=== PATIENT | female | born 1945 | race Caucasian/White ===

== ENCOUNTER → 2016-07-08 | Outpatient (CLI) | payer MEDICARE, BC ==
[~2016-07-08] MED LIST: ALEN70TA30 PO; ASPI325T32 PO; ATOR10TA65 PO; CALC500O PO; CYAN100018 PO; DULO30CA47 PO; LEVO100T87 PO; LISI-313 PO; OXYC-481 PO; POTA99TA14 PO; VITA1TAB47 PO
--- NOTE | 2016-07-09 08:49 | RADRPT ---
PROCEDURE: XR left knee. CLINICAL INDICATION: Knee pain. TECHNIQUE: Three views are available for review. COMPARISON: No comparison available FINDINGS: There is a total knee replacement. There is no evidence of loosening of the prosthesis. The osseous structures are normal in mineralization, architecture and alignment No acute fracture or dislocation is seen.No osseous lesions are identified. The soft tissues are unremarkable . there is a small field prapatellar joint effusion. IMPRESSION: Unremarkable total knee replacement. Small suprapatellar joint effusion RPTAT: [facility] .Benny Irwin MD, MD Date Time Electronically viewed and signed by .Benny Irwin MD, MD on 07/09/2016 08:48 .B/
== END | disposition home or self-care (01) ==
LOC: HKI 11:04
PROVIDERS: ATTEND Orthopaedic Surgery
DX: R20.0 Anesthesia of skin (principal); Z96.652 Presence of left artificial knee joint
CPT/HCPCS: 73562; G0463

== ENCOUNTER → 2017-01-06 | Outpatient (CLI) | payer MEDICARE, BC ==
--- NOTE | 2017-01-07 10:03 | RADRPT ---
PROCEDURE: LEFT KNEE X-RAY CLINICAL INDICATION: PAIN TECHNIQUE: AP, lateral, and oblique views of the knee were obtained. COMPARISON: Plain radiographs of the left knee from 07/08/2016 FINDINGS: No acute fracture or dislocation is seen. There is normal mineralization. A total left knee prosthesis is again noted in near anatomic alignment without evidence of hardware loosening. There is no joint effusion. There is no significant soft tissue swelling. 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 RPTAT: EE Physician Deepa Date Time Electronically viewed and signed by Physician Deepa on 01/07/2017 10:03 /
== END | disposition home or self-care (01) ==
LOC: HKI 10:53
PROVIDERS: ATTEND Orthopaedic Surgery
DX: Z47.89 Encounter for other orthopedic aftercare (principal); Z96.652 Presence of left artificial knee joint
CPT/HCPCS: 73562; G0463